=== PATIENT | female | born 1975 | race Two or more races ===

== ENCOUNTER 2025-02-14 22:30 | Emergency (ER) | payer OTHER, SELFPAY ==
[2025-02-15] MEDS: MOTRIN 600 MG PO (00:09)
--- NOTE | 2025-02-15 00:27 | ED.MUSCINJ ---
HPI-Injury
General
Chief Complaint: Musculo-Skeletal Complaint
Source: patient
Exam Limitations: none
Time Seen by Provider: 02/14/25 23:11
Nursing documentation reviewed up to this point in time: agreed with
History of Present Illness-Injury
Initial Injury comments:
Patient to the emergency department with complaint of right ankle pain. She states that she stepped into a hole and rolled her ankle. Injury occurred just prior to arrival.
Past History
Past History
ED Past Medical History: None
Review of Systems
Review of Systems
Allergies reviewed?: Yes
All Other Systems: ROS reviewed and negative except as documented in HPI and ROS
Constitutional: Reports no symptoms
Musculoskeletal: Reports joint pain (Pain to right ankle.)
Skin: Reports no symptoms
Neurological: Reports no symptoms
Psychiatric: Reports no symptoms
Musculoskeletal Injury Exam
Musculoskeletal Injury Exam
Right Lateral Ankle:
Pain with Movement?: Moderate
Tender to palpation?: Moderate
Soft tissue swelling?: Moderate
External deformity and angulation?: None
Joint effusion?: None
Contusion?: None
Hematoma-local bleeding into tissue?: None
Strain- Sprain- Tear (Connective tissue injury)?: Moderate
Crepitus with movement?: No
Joint instability?: No
Malalignment/deformity?: No
Range of motion: Limited
Distal skin color and temperature: normal-warm & good color
Capillary Refill: normal
Normal distal neurovascular exam?: Yes
Peripheral Pulses: posterior tibial (right): 3+ and dorsalis pedis (right): 3+
Phy Exam
General Physical Exam
General Presentation: well appearing and mild distress
General age: appears stated age
General Skin: warm and dry
General Habitus: normal
General Mental: alert
Musculoskeletal Exam
Musculoskeletal Exam: neuro vasc intact and other (Achilles intact, no tenderness base of5th, proximal tib-fib)
Skin Exam
Skin Exam: normal color, warm/dry and no rash
Psychiatric Exam
Psychiatric Exam: normal mood/affect
Injury Course
Orders/Labs/Results
Orders:
Orders
02/14/25 23:05
Ankle, Right 3 view CR [CR Ankle - Right Min 3 Views *] Urgent
Comment:
Reason For Exam: Twsited R Ankle
02/15/25 00:02
Ibuprofen [Motrin] 600 mg PO NOW STA
*Radiology
Radiology exam reviewed: radiology read reviewed
*Pulse Oximetry
SaO2: 100
Oxygen Mode of Delivery: Room air
Patient hypoxic: no
*Critical Care Note
Total Time (30-74mins, 75-104mins- exclusive of procedures): Not Applicable
Update Note
Update Note:
Patient to the emergency department for evaluation of right ankle pain after she stepped in a hole and rolled her ankle. On exam she has mild swelling noted to right lateral ankle. Right lower extremity is neurovascularly intact. Her Achilles is
intact, no tenderness to the base of the fifth, proximal tib-fib. X-ray reviewed, no evidence of fracture noted. If she was placed in a tall orthopedic boot and will continue to ice as needed, ibuprofen as needed. She was given number for
orthopedic and will follow-up if her symptoms do not improve over the course of the next week.
ED Attending Note
-
Portions of this chart may have been created with voice recognition software.� Occasional wrong word or��sound alike� substitutions may have occurred due to the inherent limitations of voice recognition software.
Discharge Plan
Departure
Patient Disposition: Home (Routine Discharge)
Date of Disposition: 02/15/25
Time of Disposition: 00:23
Patient with high blood pressure during this ER visit?: No
Condition: Good
Covid-19: Not Applicable
Discharge Problem:
Ankle sprain
Instructions: Knee Sprain (DC), Ibuprofen, Using Cold for Pain
Referrals:
UNKNOWN - PT DOES,NOT KNOW [Family Provider]
Colt kAbar MD [Active, Orthopedics]
Referral Note: Follow up if your symptoms do not improve over the next week.
Interventions
Interventions:
*Risk Screen - Suicide Last Done: 02/14/25 22:32
*General Assessment Last Done: 02/14/25 22:32
*Neglect/Abuse Screening Last Done: 02/14/25 22:32
*ED COVID-19 Vaccine History Last Done: 02/14/25 22:32
*ED Influenza Vaccine History Last Done: 02/14/25 22:32
*Nursing Disposition Last Done: 02/15/25 00:59
ED-Musculoskeletal Assessment Last Done: 02/14/25 23:48
Discharge Date and Time
Discharge Date/Time: 02/15/25 01:01
Print Language: [id number]
== END 2025-02-15 01:01 | disposition home or self-care (01) ==
LOC: EMR 22:30
PROVIDERS: EMERGENCY PHYSICIAN Emergency Medicine
DX: S93.401A Sprain of unspecified ligament of right ankle, initial encounter (principal); W18.42XA Slipping, tripping and stumbling without falling due to stepping into hole or opening, initial encounter; X50.1XXA Overexertion from prolonged static or awkward postures, initial encounter
CPT/HCPCS: 99283; 73610

== ENCOUNTER → 2025-03-12 12:36 | Outpatient (REF) | payer OTHER, SELFPAY | LOC: PAVMRI 12:36 | PROVIDERS: ATTENDING PHYSICIAN Podiatrist Foot & Ankle Surgery | DX: S93.491A Sprain of other ligament of right ankle, initial encounter (principal) | CPT/HCPCS: 73721 ==